=== PATIENT | female | born 1975 | race Caucasian/White ===

== ENCOUNTER 2018-01-10 23:35 | Emergency (ER) | payer OTHER ==
[~2018-01-10] VITALS: Ht 170.2 cm; Wt 116.6 kg
[2018-01-11 00:49] VITALS: BP 156/101
== END 2018-01-11 00:49 | disposition home or self-care (01) ==
LOC: M.ERS 23:35
DX: T78.40XA Allergy, unspecified, initial encounter (principal); F17.210 Nicotine dependence, cigarettes, uncomplicated; Z88.8 Allergy status to other drugs, medicaments and biological substances; X58.XXXA Exposure to other specified factors, initial encounter

== ENCOUNTER 2018-11-03 18:36 | Emergency (ER) | payer OTHER ==
[~2018-11-03] VITALS: Ht 170.2 cm; Wt 116.6 kg
[2018-11-03 19:07] LABS: URINE BILIRUBIN NEGATIVE (Negative); URINE BLOOD 3+ (Negative); URINE CLARITY CLEAR; URINE COLOR YELLOW; URINE GLUCOSE-RANDOM 1+ (Negative); URINE KETONES NEGATIVE (Negative); URINE LEUKOCYTES-REFLEX NEGATIVE (Negative); URINE NITRITE-REFLEX NEGATIVE (Negative); URINE PROTEIN NEGATIVE (Negative); URINE SPECIFIC GRAVITY <= 1.005 (1.005-1.030); URINE UROBILINOGEN 0.2 E.U./dl (0.2-1.0)
[2018-11-03 19:13] LABS: BACTERIA-REFLEX None Seen /HPF (None Seen); CASTS None Seen /LPF (None Seen); CRYSTALS None Seen /LPF (None Seen); SQUAMOUS 0-3 Few /LPF (0-3); URINE RBC None Seen /HPF (0-2); URINE WBC-REFLEX None Seen /HPF (0-5)
[2018-11-03 19:33] LABS: ABSOLUTE BASOPHILS 0.1 thou/uL (0.0-0.2); ABSOLUTE EOSINOPHILS 0.1 thou/uL (0.0-0.7); ABSOLUTE LYMPHOCYTES 3.6 thou/uL (0.8-5.3); ABSOLUTE MONOCYTES 0.5 thou/uL (0.0-1.2); ABSOLUTE NEUTROPHILS 8.4 thou/uL (1.6-8.1); BASOPHILS 0.8 %; EOSINOPHILS 0.9 %; HEMATOCRIT 43.8 % (37.0-47.0); HEMOGLOBIN 14.9 gm/dL (12.0-15.0); LYMPHOCYTES 28.2 %; MCH 29.7 pg (26.0-34.0); MCHC 34.1 g/dL (28.0-37.0); MCV 87.3 fL (80.0-100.0); MONOCYTES 4.3 %; MPV 9.9 fl. (7.2-11.1); NUCLEATED RBCS 0 /100WBC; PLATELET COUNT* 228 thou/uL (150-400); POLYS 65.8 %; RBC 5.02 mil/uL (4.20-5.00); RDW-CV 13.7 % (10.5-14.5); WBC 12.8 thou/uL (4.0-11.0)
[2018-11-03 19:37] LABS: ANION GAP 13 mmol/L (7-16); BUN 9 mg/dL (7-18); CALCIUM 8.6 mg/dL (8.5-10.1); CHLORIDE 104 mmol/L (98-107); CO2 24 mmol/L (21-32); CREATININE 0.8 mg/dL (0.6-1.3); GLUCOSE 221 mg/dL (70-99); POTASSIUM 3.6 mmol/L (3.5-5.1); SODIUM 141 mmol/L (136-145)
[2018-11-03 19:47] LABS: ALBUMIN 3.1 g/dL (3.4-5.0); ALKALINE PHOSPHATASE 75 U/L (46-116); SGOT 45 U/L (15-37); SGPT 59 U/L (30-65); TOTAL BILIRUBIN 0.1 mg/dL (<0.1-1.0); TOTAL PROTEIN 6.9 g/dL (6.4-8.2); TROPONIN-I LEVEL <0.06 ng/mL (<0.06)
[2018-11-03] MEDS ORDERED: LISINOPRIL10 MG PO (21:12)
[2018-11-03 21:23] VITALS: BP 150/91
--- NOTE | 2018-11-04 10:33 | EKG ---
[place] [address] ELECTROCARDIOGRAM REPORT Name: ROBERTCHRISTIE MOISEN Room: [facility]#: [id number] Admission: 11/03/18 Attend Phys: Discharge: 11/03/18 Date of : 71 Report #: [id number] THIS REPORT FOR: //name// [facility] ED Test Date: 2018-11-03 Test Time: 19:12:15 Pat Name: CHRISTIE JONES Department: Room: Gender: F [employer]: : [id number] Requested By: [place] Michaud Order Number: [id number] MD: Forest Nunn Measurements Intervals [place] Rate: 102 P: 21 [place]: 163 QRS: -79 QRSD: 104 T: 29 QT: 354 QTc: 462 Interpretive Statements Sinus tachycardia Left atrial enlargement LAD, consider left anterior fascicular block Abnormal R-wave progression, late transition No previous ECG available for comparison Electronically Signed On 11-04-2018 10:33:03 CDT by Forest Nunn [email or web address] <ELECTRONICALLY SIGNED> By: Forest Nunn MD, [facility] [id number] 11 Forest Nunn MD, FAC /EPI
== END 2018-11-03 21:35 | disposition home or self-care (01) ==
LOC: M.ERS 18:36
PROVIDERS: Nurse Practitioner Family
DX: I10 Essential (primary) hypertension (principal); F17.210 Nicotine dependence, cigarettes, uncomplicated; Z98.890 Other specified postprocedural states; Z88.8 Allergy status to other drugs, medicaments and biological substances